=== PATIENT | female | born 1970 | race Caucasian/White ===

== ENCOUNTER 2022-12-17 08:29 | Day surgery (SDC) | payer OTHER ==
[~2022-12-17] VITALS: Ht 165.1 cm; Wt 68.0 kg
[2022-12-17] MEDS ORDERED: diphenhydrAMINE 50 MG/ML VIAL ONE (09:55)
[2022-12-17] MEDS ORDERED: MIDAZOLAM 2 MG/2 ML VIAL ONE ×2 (09:56→10:13)
[2022-12-17] MEDS ORDERED: fentaNYL citrate 0.05 MG/ML VIAL ONE (09:56)
[2022-12-17] MEDS ORDERED: LIDOCAINE 2% 100 MG/5 ML UJET TP ONE (09:56)
[2022-12-17] MEDS ORDERED: fentaNYL citrate 0.05 MG/ML VIAL IVP ONE (13:55)
[2022-12-17] MEDS ORDERED: MIDAZOLAM 2 MG/2 ML VIAL IVP ONE (13:55)
== END 2022-12-17 11:55 | disposition home or self-care (01) ==
LOC: MDS 08:29 → MMU 08:30 → MDS 11:55
PROVIDERS: ATTEND Internal Medicine Gastroenterology
DX: K62.5 Hemorrhage of anus and rectum (principal); D12.0 Benign neoplasm of cecum; Z88.1 Allergy status to other antibiotic agents
CPT/HCPCS: 45380; 45385; 88305; J2250; J3010; J1200